=== PATIENT | female | born 1935 | race Caucasian/White ===

== ENCOUNTER 2021-06-08 11:38 | Emergency (ER) | payer MEDICARE ==
[~2021-06-08] VITALS: Ht 170.2 cm; Wt 68.9 kg
[2021-06-08 13:22] LABS: BASOPHILS % (AUTO) 0.8 % (0.0-5.0); EOSINOPHILS % (AUTO) 3.8 % (0.0-8.0); HEMATOCRIT 34.2 % (36-48); LYMPHOCYTES % (AUTO) 12.2 % (21.0-51.0); MEAN CORPUSCULAR HEMOGLOBIN 30.5 pg (27.0-33.0); MEAN CORPUSCULAR HGB CONC 34.2 g/dL (32.0-36.0); MEAN CORPUSCULAR VOLUME 89.1 fL (79-99); MONOCYTES % (AUTO) 8.6 % (3.0-13.0); NEUTROPHILS % (AUTO) 73.8 % (40.0-77.0); PLATELET COUNT (AUTO) 135 K/uL (130-400); RED BLOOD CELL COUNT(AUTO) 3.84 MIL/uL (4.00-5.50); RED CELL DISTRIBUTION WIDTH 12.9 % (11.0-15.5); WHITE BLOOD COUNT (AUTO) 6.6 K/uL (4.8-10.8)
[2021-06-08 13:44] LABS: ALBUMIN 3.7 g/dL (3.5-5.0); BILIRUBIN,TOTAL 0.7 mg/dL (0.2-1.0); CREATININE 1.3 mg/dL (0.5-1.5); TOTAL PROTEIN, SERUM 7.1 g/dL (6.0-8.3)
[2021-06-08 13:45] LABS: POTASSIUM 2.9 mmol/L (3.5-5.1)
[2021-06-08 13:51] LABS: APPEARANCE,URINE Clear (CLEAR); BILIRUBIN,URINE Small (NEGATIVE); COLOR,URINE Dark Yellow (YELLOW); GLUCOSE, URINE (UA) Negative (NEGATIVE); KETONES,URINE 15 mg/dL (NEGATIVE); LEUKOCYTE ESTERASE ,URINE Small (NEGATIVE); NITRATE,URINE Negative (NEGATIVE); OCCULT BLOOD,URINE Negative (NEGATIVE); PH,URINE 5.5 (5.0-8.0); PROTEIN,URINE POS 2+ mg/dL (NEGATIVE)
[2021-06-08 14:05] LABS: BACTERIA,URINE Rare /HPF (None Seen); RBC,URINE 0-1 /HPF (0-1); SQUAMOUS EPITHELIAL CELL,UR Few /HPF (0-2); WBC,URINE 0-1 /HPF (0-1)
[2021-06-08] MEDS ORDERED: KCL 20 MEQ ERTAB PO SCH (14:30)
[2021-06-08 15:00] VITALS: BP 136/68
== END 2021-06-08 15:26 | disposition home or self-care (01) ==
LOC: EDH 11:38
DX: E87.6 Hypokalemia (principal); G20 Parkinson's disease; Z79.899 Other long term (current) drug therapy
CPT/HCPCS: 36415; 70450; 72125; 80053; 81001; 85025

== ENCOUNTER 2021-11-27 04:13 | Inpatient (IN) | payer MEDICARE ==
[~2021-11-27] VITALS: Ht 165.1 cm; Wt 68.2 kg
[2021-11-27 04:53] LABS: BASOPHILS % (AUTO) 0.3 % (0.0-5.0); HEMATOCRIT 39.7 % (36-48); LYMPHOCYTES % (AUTO) 14.7 % (21.0-51.0); MEAN CORPUSCULAR HEMOGLOBIN 28.7 pg (27.0-33.0); MEAN CORPUSCULAR HGB CONC 33.5 g/dL (32.0-36.0); MEAN CORPUSCULAR VOLUME 85.6 fL (79-99); MONOCYTES % (AUTO) 6.1 % (3.0-13.0); NEUTROPHILS % (AUTO) 77.6 % (40.0-77.0); PLATELET COUNT (AUTO) 147 K/uL (130-400); RED BLOOD CELL COUNT(AUTO) 4.64 MIL/uL (4.00-5.50)
[2021-11-27 05:03] LABS: CREATININE 1.2 mg/dL (0.5-1.5); POTASSIUM 3.1 mmol/L (3.5-5.1)
[2021-11-27 05:11] LABS: ALBUMIN 3.8 g/dL (3.5-5.0); BILIRUBIN,TOTAL 0.6 mg/dL (0.2-1.0); TOTAL PROTEIN, SERUM 7.6 g/dL (6.0-8.3)
[2021-11-27] MEDS ORDERED: POTASSIUM BICARB/CIT AC 25 MEQ TABLET.EFF PO ONE (05:30)
[2021-11-27] MEDS ORDERED: TETANUS/DIPHTHERIA TOXOID [ADULT] 0.5 ML VIAL IM ONE (05:30)
[2021-11-27 06:09] LABS: APPEARANCE,URINE Cloudy (CLEAR); BILIRUBIN,URINE Negative (NEGATIVE); COLOR,URINE Yellow (YELLOW); GLUCOSE, URINE (UA) 250 mg/dL (NEGATIVE); KETONES,URINE Negative (NEGATIVE); LEUKOCYTE ESTERASE ,URINE Large (NEGATIVE); NITRATE,URINE Negative (NEGATIVE); OCCULT BLOOD,URINE Negative (NEGATIVE); PROTEIN,URINE Trace mg/dL (NEGATIVE)
[2021-11-27] MEDS ORDERED: ACETAMINOPHEN 325 MG TAB PO ONE (06:30)
[2021-11-27] MEDS ORDERED: NITROGLYCERIN 1GM OINT 1 INCH/1GM TD ONE (06:30)
[2021-11-27 07:10] LABS: BACTERIA,URINE Few /HPF (None Seen); SQUAMOUS EPITHELIAL CELL,UR Few /HPF (0-2)
[2021-11-27] MEDS ORDERED: HYDRALAZINE 20MG/ML VIAL ONE (09:10)
[2021-11-27] MEDS: HYDRALAZINE 20MG/ML VIAL IV PRN ×2 (09:29→15:50)
[2021-11-27] MEDS ORDERED: LOSARTAN 50 MG TABLET PO SCH (09:30)
[2021-11-27] MEDS ORDERED: LACTATED RINGERS 1000ML 1,000 ML IV ONE (09:30)
[2021-11-27] MEDS ORDERED: KCL 20 MEQ ERTAB PO ONE (09:30)
[2021-11-27 09:47] LABS: HEMOGLOBIN A1C 5.9 % (4.0-6.0)
[2021-11-27] MEDS ORDERED: LATA7.5D OP (13:15)
[2021-11-27 13:16] LABS: AMPHET/METH SCREEN,URINE NEGATIVE (NEGATIVE); BARBITURATE SCREEN, URINE NEGATIVE (NEGATIVE); BENZODIAZEPINES SCREEN,URINE NEGATIVE (NEGATIVE); CANNABINOID SCREEN,URINE NEGATIVE (NEGATIVE); COCAINE SCREEN,URINE NEGATIVE (NEGATIVE); OPIATE SCREEN,URINE NEGATIVE (NEGATIVE); PHENCYCLIDINE SCREEN,URINE NEGATIVE (NEGATIVE)
[2021-11-27] MEDS ORDERED: DORZ10DR10 OP (13:22)
[2021-11-27] MEDS ORDERED: VALS320T2 PO (13:22)
[2021-11-27] MEDS ORDERED: METO25TA3 PO (13:22)
[2021-11-27] MEDS ORDERED: CARB1TAB20 PO (13:22)
[2021-11-27] MEDS ORDERED: PHARMACY COMMUNICATION MISC SCH (17:00)
[2021-11-27 17:15] VITALS: BP 131/71
[2021-11-27] MEDS: CARBIDOPA-LEVODOPA 25-100 TAB PO SCH ×2 (17:27→20:50)
[2021-11-27 17:52] LABS: CREATININE 1.1 mg/dL (0.5-1.5); POTASSIUM 3.7 mmol/L (3.5-5.1)
[2021-11-27 17:56] LABS: ALBUMIN 3.6 g/dL (3.5-5.0); BILIRUBIN,TOTAL 0.9 mg/dL (0.2-1.0); MAGNESIUM 1.7 mg/dL (1.80-2.40); TOTAL PROTEIN, SERUM 7.1 g/dL (6.0-8.3)
[2021-11-27] MEDS ORDERED: MAGNESIUM 2GM PREMIX 50ML 50 ML IV PRN (18:30)
[2021-11-27] MEDS ORDERED: MAGNESIUM 2GM PREMIX 50ML 50 ML IV ONE (18:41)
[2021-11-27 20:49] VITALS: BP 160/83
[2021-11-27] MEDS: DORZOLAMIDE HCL/TIMOLOL MALEAT DROPS 10 ML BOTTLE OP SCH (20:50)
[2021-11-27 23:31] VITALS: BP 161/88
[2021-11-28 04:14] LABS: BASOPHILS % (AUTO) 0.4 % (0.0-5.0); EOSINOPHILS % (AUTO) 1.5 % (0.0-8.0); HEMATOCRIT 38.2 % (36-48); LYMPHOCYTES % (AUTO) 13.9 % (21.0-51.0); MEAN CORPUSCULAR HEMOGLOBIN 27.8 pg (27.0-33.0); MEAN CORPUSCULAR HGB CONC 32.2 g/dL (32.0-36.0); MEAN CORPUSCULAR VOLUME 86.2 fL (79-99); MONOCYTES % (AUTO) 9.3 % (3.0-13.0); NEUTROPHILS % (AUTO) 74.5 % (40.0-77.0); PLATELET COUNT (AUTO) 144 K/uL (130-400); RED BLOOD CELL COUNT(AUTO) 4.43 MIL/uL (4.00-5.50); RED CELL DISTRIBUTION WIDTH 14.2 % (11.0-15.5); WHITE BLOOD COUNT (AUTO) 7.4 K/uL (4.8-10.8)
[2021-11-28 04:37] LABS: MAGNESIUM 2.1 mg/dL (1.80-2.40); POTASSIUM 3.7 mmol/L (3.5-5.1)
[2021-11-28 04:43] VITALS: BP 170/92
[2021-11-28 08:21] VITALS: BP 170/90
[2021-11-28] MEDS: CARBIDOPA-LEVODOPA 25-100 TAB PO SCH ×4 (08:43→21:54)
[2021-11-28] MEDS: LOSARTAN 100 MG TABLET PO SCH (08:43)
[2021-11-28] MEDS: DORZOLAMIDE HCL/TIMOLOL MALEAT DROPS 10 ML BOTTLE OP SCH ×2 (08:47→21:54)
[2021-11-28] MEDS: LATANOPROST 2.5 ML DROPS OP SCH (08:47)
[2021-11-28 11:11] VITALS: BP 165/81
[2021-11-28] MEDS: LEVOFLOXACIN 500 MG TABLET PO SCH (14:40)
[2021-11-28 16:22] VITALS: BP 164/80
[2021-11-28 20:32] VITALS: BP 174/77
[2021-11-28 23:42] VITALS: BP 188/87
[2021-11-29 03:54] VITALS: BP 178/80
[2021-11-29] MEDS ORDERED: ACETAMINOPHEN 325 MG TAB ONE (04:41)
[2021-11-29] MEDS: ACETAMINOPHEN 325 MG TAB PO PRN (05:20)
[2021-11-29] MEDS: LOSARTAN 100 MG TABLET PO SCH (08:13)
[2021-11-29] MEDS: LEVOFLOXACIN 500 MG TABLET PO SCH ×2 (08:13→13:27)
[2021-11-29] MEDS: LATANOPROST 2.5 ML DROPS OP SCH (08:16)
[2021-11-29] MEDS: DORZOLAMIDE HCL/TIMOLOL MALEAT DROPS 10 ML BOTTLE OP SCH ×2 (08:16→23:29)
[2021-11-29] MEDS: CARBIDOPA-LEVODOPA 25-100 TAB PO SCH ×4 (09:18→23:29)
[2021-11-29 10:45] VITALS: BP 194/91
[2021-11-29] MEDS ORDERED: HYDRALAZINE HCL 10 MG TABLET ONE (11:43)
[2021-11-29] MEDS ORDERED: HYDRALAZINE HCL 10 MG TABLET PO SCH (14:00)
[2021-11-29 15:10] VITALS: BP 189/85
[2021-11-29] MEDS: METOPROLOL SUCCINATE 50 MG TAB.SR.24H PO SCH (16:05)
[2021-11-29 19:40] VITALS: BP 188/92
[2021-11-29 20:55] VITALS: BP 131/79
[2021-11-29] MEDS ORDERED: HYDRALAZINE 25MG TABLET PO SCH (21:00)
[2021-11-29 23:40] VITALS: BP 180/87
[2021-11-30 03:56] VITALS: BP 120/59
[2021-11-30 04:58] LABS: HEMATOCRIT 38.7 % (36-48); MEAN CORPUSCULAR HEMOGLOBIN 28.6 pg (27.0-33.0); MEAN CORPUSCULAR HGB CONC 33.6 g/dL (32.0-36.0); MEAN CORPUSCULAR VOLUME 85.2 fL (79-99); RED BLOOD CELL COUNT(AUTO) 4.54 MIL/uL (4.00-5.50); RED CELL DISTRIBUTION WIDTH 14.1 % (11.0-15.5); WHITE BLOOD COUNT (AUTO) 7.4 K/uL (4.8-10.8)
[2021-11-30 05:15] LABS: ALBUMIN 3.1 g/dL (3.5-5.0); BILIRUBIN,TOTAL 0.7 mg/dL (0.2-1.0); CREATININE 1.2 mg/dL (0.5-1.5); POTASSIUM 3.4 mmol/L (3.5-5.1); TOTAL PROTEIN, SERUM 6.7 g/dL (6.0-8.3)
[2021-11-30 08:00] VITALS: BP 212/100
[2021-11-30] MEDS ORDERED: METOPROLOL SUCCINATE 50 MG TAB.SR.24H PO SCH (09:00)
[2021-11-30] MEDS: DORZOLAMIDE HCL/TIMOLOL MALEAT DROPS 10 ML BOTTLE OP SCH ×2 (10:30→19:46)
[2021-11-30] MEDS: LATANOPROST 2.5 ML DROPS OP SCH (10:31)
[2021-11-30] MEDS: METOPROLOL SUCCINATE 50 MG TAB.SR.24H PO SCH (10:33)
[2021-11-30] MEDS: LOSARTAN 100 MG TABLET PO SCH (10:34)
[2021-11-30] MEDS: HYDRALAZINE 25MG TABLET PO SCH ×3 (10:35→19:39)
[2021-11-30] MEDS: CARBIDOPA-LEVODOPA 25-100 TAB PO SCH ×4 (10:35→19:39)
[2021-11-30] MEDS: LEVOFLOXACIN 500 MG TABLET PO SCH ×2 (10:35→14:12)
[2021-11-30 11:58] VITALS: BP 112/57
[2021-11-30 16:00] VITALS: BP 91/51
[2021-11-30] MEDS: ACETAMINOPHEN 325 MG TAB PO PRN (17:00)
[2021-11-30 20:05] VITALS: BP 130/56
[2021-11-30] MEDS ORDERED: RISPERIDONE 1 MG TABLET PO SCH (21:00)
[2021-11-30 23:59] VITALS: BP 112/49
[2021-12-01 04:56] LABS: BASOPHILS % (AUTO) 0.5 % (0.0-5.0); EOSINOPHILS % (AUTO) 1.6 % (0.0-8.0); HEMATOCRIT 35.7 % (36-48); LYMPHOCYTES % (AUTO) 25.2 % (21.0-51.0); MEAN CORPUSCULAR HEMOGLOBIN 27.9 pg (27.0-33.0); MEAN CORPUSCULAR HGB CONC 31.4 g/dL (32.0-36.0); MEAN CORPUSCULAR VOLUME 88.8 fL (79-99); MONOCYTES % (AUTO) 10.8 % (3.0-13.0); NEUTROPHILS % (AUTO) 61.6 % (40.0-77.0); PLATELET COUNT (AUTO) 139 K/uL (130-400); RED BLOOD CELL COUNT(AUTO) 4.02 MIL/uL (4.00-5.50); RED CELL DISTRIBUTION WIDTH 14.3 % (11.0-15.5); WHITE BLOOD COUNT (AUTO) 5.8 K/uL (4.8-10.8)
[2021-12-01 04:57] VITALS: BP 112/50
[2021-12-01 05:07] LABS: ALBUMIN 2.8 g/dL (3.5-5.0); ASPARTATE AMINOTRANSFERASE 12 U/L (10-37); BILIRUBIN,TOTAL 0.8 mg/dL (0.2-1.0); CARBON DIOXIDE 30 mmol/L (21-32); CHLORIDE 106 mmol/L (101-111); CREATININE 1.5 mg/dL (0.5-1.5); GLOMERULAR FILTR. RATE CALC 35 mL/min (>60); GLUCOSE,RANDOM 99 mg/dL (70-105); POTASSIUM 3.3 mmol/L (3.5-5.1); SODIUM SERUM 141 mmol/L (136-145); TOTAL PROTEIN, SERUM 5.9 g/dL (6.0-8.3); UREA NITROGEN, BLOOD 34 mg/dL (7-18)
[2021-12-01 05:10] LABS: ALANINE AMINOTRANSFERASE < 6 U/L (12-78)
[2021-12-01] MEDS: CARBIDOPA-LEVODOPA 25-100 TAB PO SCH ×2 (08:30→13:41)
[2021-12-01] MEDS: LOSARTAN 100 MG TABLET PO SCH (08:30)
[2021-12-01] MEDS: HYDRALAZINE 25MG TABLET PO SCH ×2 (08:30→13:41)
[2021-12-01] MEDS: METOPROLOL SUCCINATE 50 MG TAB.SR.24H PO SCH (08:30)
[2021-12-01] MEDS: DORZOLAMIDE HCL/TIMOLOL MALEAT DROPS 10 ML BOTTLE OP SCH (08:31)
[2021-12-01] MEDS: LEVOFLOXACIN 500 MG TABLET PO SCH ×3 (08:31→14:14)
[2021-12-01] MEDS: LATANOPROST 2.5 ML DROPS OP SCH (08:31)
[2021-12-01 08:54] VITALS: BP 141/68
[2021-12-01] MEDS ORDERED: KCL 20 MEQ ERTAB PO PRN (09:30)
[2021-12-01] MEDS ORDERED: POTASSIUM CHLORIDE 10MEQ/100ML 100 ML IV PRN (09:30)
[2021-12-01] MEDS ORDERED: POTASSIUM CHLORIDE 10% ELIXIR 20 MEQ/15 ML UDCUP PO PRN (09:30)
[2021-12-01] MEDS: ACETAMINOPHEN 325 MG TAB PO PRN (11:03)
[2021-12-01 12:02] VITALS: BP 109/50
[2021-12-01 16:29] VITALS: BP 119/60
== END 2021-12-01 18:15 | DRG 689 ==
LOC: EDH 04:13 → EDHIP 09:08 → 4AH 17:09
PROVIDERS: ADMIT Internal Medicine; ATTEND Internal Medicine
DX: N39.0 Urinary tract infection, site not specified (principal); G92.8 Other toxic encephalopathy; I16.0 Hypertensive urgency; G20 Parkinson's disease; G89.29 Other chronic pain; S00.83XA Contusion of other part of head, initial encounter; E16.2 Hypoglycemia, unspecified; Z20.822 Contact with and (suspected) exposure to COVID-19; I10 Essential (primary) hypertension; E87.6 Hypokalemia; Z66 Do not resuscitate; R54 Age-related physical debility; W18.39XA Other fall on same level, initial encounter; Y93.89 Activity, other specified; Y92.89 Other specified places as the place of occurrence of the external cause; Y99.8 Other external cause status; Z88.0 Allergy status to penicillin; Z88.8 Allergy status to other drugs, medicaments and biological substances
CPT/HCPCS: 36415; 70450; 70486; 72125; 73521; 73562; 80048; 80053; 80305; 81001; 82550; 82948; 83036; 83735; 84484; 85025; 85027; 87088; 87635; 90714; 92610; 93005; 97039; G0378; J0360; J3475; J7120